=== PATIENT | male | born 1990 | race Caucasian/White ===

== ENCOUNTER 2022-05-09 08:50 | Emergency (ER) | payer OTHER ==
[~2022-05-09] VITALS: Ht 193 cm; Wt 79.5 kg
[~2022-05-09 08:50] MED LIST: LAM200 PO; QUET300T1 PO; QUET400T PO; TOPI50TA PO; TRAZ-471 PO
--- NOTE | 2022-05-09 08:50 | NUR ---
[facility] TO ER BED 2
[2022-05-09 09:07] VITALS: BP 123/84
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
[2022-05-09] MEDS ORDERED: LIDOCAINE 5% 1 EA PATCH TP SCH (09:55)
[2022-05-09] MEDS ORDERED: KETOROLAC 30 MG/ML VIAL IM ONE (09:55)
--- NOTE | 2022-05-09 09:57 | NUR ---
Dr. Tillman evaluating patient at beside
[2022-05-09] MEDS ORDERED: LID5T TP (10:07)
[2022-05-09] MEDS ORDERED: IBUP-2213 PO (10:07)
--- NOTE | 2022-05-09 10:42 | NUR ---
Patient discharged with v/s stable. Written and verbal after care instructions given. Patient alert, oriented and verbalized understanding of instructions. Ambulatory with steady gait. All questions addressed prior to discharge. ID band removed. Patient advised to follow up with PMD. Rx of Ibuprofen and Lidoderm given. Opportunity to ask questions provided and answered.
--- NOTE | 2022-05-09 10:42 | NUR ---
The patient's care was reviewed and supervised by Ralph Stevenson RN.
--- NOTE | 2022-05-09 10:43 | NUR ---
Chart checked and completed. The patient's care was reviewed and supervised by Jelena Riggins RN.
[2022-05-09 10:44] VITALS: BP 117/75
== END 2022-05-09 10:42 | disposition home or self-care (01) ==
LOC: MED 08:50
DX: S29.011A Strain of muscle and tendon of front wall of thorax, initial encounter (principal); Z88.0 Allergy status to penicillin; Z88.5 Allergy status to narcotic agent; Z88.8 Allergy status to other drugs, medicaments and biological substances; X58.XXXA Exposure to other specified factors, initial encounter; Y93.89 Activity, other specified; Y92.89 Other specified places as the place of occurrence of the external cause; Y99.8 Other external cause status
CPT/HCPCS: 81002; 99283